=== PATIENT | male | born 1980 | race Caucasian/White ===

== ENCOUNTER 2019-04-24 20:56 | Emergency (ER) | payer OTHER ==
[2019-04-24 21:11] VITALS: TEMP 98.5
[2019-04-24] MEDS ORDERED: VANCOMYCIN IV PER PHARMACY 1 EACH MISC MISCELLANE PRN (21:56)
--- NOTE | 2019-04-24 22:50 | ED ---
Extremity Problem HPI - General Chief complaint: Extremity Problem,Nontraumatic Stated complaint: bilateral edema lower extremities Time Seen by Provider: 04/24/19 21:39 Source: patient Mode of arrival: ambulatory Limitations: no limitations - History of Present Illness Initial comments: This patient is a 39-year-old man who presents to be evaluated for bilateral leg redness and swelling. The patient states that the symptoms have been going on since , when he initially noticed the redness. Then the swelling developed over the course of the next day and there is also some pain associated. The patient states she is currently at [facility] and they sent him here to have evaluation. 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 He has not noted fever or chills. No chest pain, palpitations, dyspnea, diaphoresis. MD Complaint: extremity pain, extremity swelling Onset/Timin -: days(s) Location: bilateral lower extremity Radiation: none Quality: burning Consistency: constant Improves with: nothing Worsens with: nothing Associated Symptoms: denies other symptoms - Related Data Home Medications Medication Instructions Recorded Confirmed Diazepam [Valium] 5 mg PO TID PRN 04/24/19 04/24/19 Gabapentin 800 mg PO TID 04/24/19 04/24/19 Ibuprofen [Motrin] 800 mg PO TID PRN 04/24/19 04/24/19 Methadone [Dolophine] 90 mg PO DAILY 04/24/19 04/24/19 buPROPion XL [Wellbutrin Xl] 150 mg PO DAILY 04/24/19 04/24/19 Previous Rx's Medication Instructions Recorded Cephalexin [Keflex] 500 mg PO Q6HR #28 cap 04/25/19 Sulfamethox-Tmp 800-160Mg [Bactrim 1 each PO Q12HR #14 tab 04/25/19 Ds] Allergies Allergy/AdvReac Type Severity Reaction Status Date / Time No Known Allergies Allergy Verified 04/24/19 22:06 Review of Systems ROS Statement: Those systems with pertinent positive or pertinent negative responses have been documented in the HPI. ROS Other: All systems not noted in ROS Statement are negative. Constitutional: Denies: fever, chills Respiratory: Denies: cough, dyspnea Cardiovascular: Reports: as per HPI, edema. Denies: chest pain, palpitations, syncope Gastrointestinal: Denies: abdominal pain, nausea, vomiting Musculoskeletal: Denies: back pain, joint swelling, arthralgia Skin: Reports: as per HPI, change in color. Denies: rash Neurological: Denies: weakness, numbness, paresthesias Past Medical History Additional Past Medical History / Comment(s): neuropathy History of Any Multi-Drug Resistant Organisms: MRSA Date of last positivie culture/infection: October 16, 2018 MDRO Source:: back Past Surgical History: Appendectomy, Bowel Resection Additional Past Surgical History / Comment(s): spinal sx Past Psychological History: Bipolar Smoking Status: Current every day smoker Past Alcohol Use History: None Reported Past Drug Use History: Cocaine, Heroin General Exam Limitations: no limitations General appearance: alert, in no apparent distress Respiratory exam: Present: normal lung sounds bilaterally. Absent: respiratory distress, wheezes, rales, rhonchi, stridor Cardiovascular Exam: Present: regular rate, normal rhythm, normal heart sounds. Absent: systolic murmur, diastolic murmur, rubs, gallop GI/Abdominal exam: Present: soft. Absent: distended, tenderness, guarding, rebound, rigid, mass Extremities exam: Present: full ROM, normal capillary refill, other (Patient does have some warmth, erythema and mild swelling in the lower extremities consistent with cellulitis). Absent: calf tenderness Back exam: Present: normal inspection Neurological exam: Present: alert. Absent: motor sensory deficit Skin exam: Present: warm, dry, intact, erythema, other (See above. No skin findings suggestive of endocarditis) Course Vital Signs 04/24/19 04/25/19 21:05 02:01 Temperature 98.5 F Pulse Rate 73 60 Respiratory 20 18 Rate Blood Pressure 145/90 125/79 O2 Sat by Pulse 98 99 Oximetry Medical Decision Making - Lab Data Result diagrams: 04/24/19 22:55 04/24/19 22:55 Lab Results 04/24/19 04/24/19 04/24/19 Range/Units 22:55 22:55 22:55 WBC 9.9 (3.8-10.6) k/uL RBC 4.14 L (4.30-5.90) m/uL Hgb 12.7 L (13.0-17.5) gm/dL Hct 37.4 L (39.0-53.0) % MCV 90.2 (80.0-100.0) fL MCH 30.5 (25.0-35.0) pg MCHC 33.8 (31.0-37.0) g/dL RDW 15.2 (11.5-15.5) % Plt Count 397 (150-450) k/uL Neutrophils % 70 % Lymphocytes % 23 % Monocytes % 4 % Eosinophils % 2 % Basophils % 1 % Neutrophils # 6.9 (1.3-7.7) k/uL Lymphocytes # 2.2 (1.0-4.8) k/uL Monocytes # 0.4 (0-1.0) k/uL Eosinophils # 0.2 (0-0.7) k/uL Basophils # 0.1 (0-0.2) k/uL Sodium 141 (137-145) mmol/L Potassium 4.6 (3.5-5.1) mmol/L Chloride 104 (98-107) mmol/L Carbon Dioxide 25 (22-30) mmol/L Anion Gap 12 mmol/L BUN 16 (9-20) mg/dL Creatinine 0.72 (0.66-1.25) mg/dL Est GFR (CKD-EPI)AfAm >90 (>60 ml/min/1.73 sqM) Est GFR (CKD-EPI)NonAf >90 (>60 ml/min/1.73 sqM) Glucose 88 (74-99) mg/dL Plasma Lactic Acid Jasper 0.7 (0.7-2.0) mmol/L Calcium 9.8 (8.4-10.2) mg/dL Total Bilirubin 0.5 (0.2-1.3) mg/dL AST 38 (17-59) U/L ALT 42 (21-72) U/L Alkaline Phosphatase 99 (38-126) U/L Total Protein 7.8 (6.3-8.2) g/dL Albumin 4.2 (3.5-5.0) g/dL Urine Color Urine Appearance (Clear) Urine pH (5.0-8.0) Ur Specific Hobbs (1.001-1.035) Urine Protein (Negative) Urine Glucose (UA) (Negative) Urine Ketones (Negative) Urine Blood (Negative) Urine Nitrite (Negative) Urine Bilirubin (Negative) Urine Urobilinogen (<2.0) mg/dL Ur Leukocyte Esterase (Negative) 09/07/19 Range/Units 23:30 WBC (3.8-10.6) k/uL RBC (4.30-5.90) m/uL Hgb (13.0-17.5) gm/dL Hct (39.0-53.0) % MCV (80.0-100.0) fL MCH (25.0-35.0) pg MCHC (31.0-37.0) g/dL RDW (11.5-15.5) % Plt Count (150-450) k/uL Neutrophils % % Lymphocytes % % Monocytes % % Eosinophils % % Basophils % % Neutrophils # (1.3-7.7) k/uL Lymphocytes # (1.0-4.8) k/uL Monocytes # (0-1.0) k/uL Eosinophils # (0-0.7) k/uL Basophils # (0-0.2) k/uL Sodium (137-145) mmol/L Potassium (3.5-5.1) mmol/L Chloride (98-107) mmol/L Carbon Dioxide (22-30) mmol/L Anion Gap mmol/L BUN (9-20) mg/dL Creatinine (0.66-1.25) mg/dL Est GFR (CKD-EPI)AfAm (>60 ml/min/1.73 sqM) Est GFR (CKD-EPI)NonAf (>60 ml/min/1.73 sqM) Glucose (74-99) mg/dL Plasma Lactic Acid Jasper (0.7-2.0) mmol/L Calcium (8.4-10.2) mg/dL Total Bilirubin (0.2-1.3) mg/dL AST (17-59) U/L ALT (21-72) U/L Alkaline Phosphatase (38-126) U/L Total Protein (6.3-8.2) g/dL Albumin (3.5-5.0) g/dL Urine Color Light Yellow Urine Appearance Clear (Clear) Urine pH 7.0 (5.0-8.0) Ur Specific Hobbs 1.004 (1.001-1.035) Urine Protein Negative (Negative) Urine Glucose (UA) Negative (Negative) Urine Ketones Negative (Negative) Urine Blood Negative (Negative) Urine Nitrite Negative (Negative) Urine Bilirubin Negative (Negative) Urine Urobilinogen <2.0 (<2.0) mg/dL Ur Leukocyte Esterase Negative (Negative) - EKG Data -: EKG Interpreted by [facility] EKG shows normal: sinus rhythm, intervals (DC interval 164 ms, QTC 462 ms, both normal. QRS duration 122 ms, prolonged consistent with right bundle-branch block), QRS complexes (Right bundle-branch block.), ST-T waves (Normal) Rate: normal (Normal) Disposition Clinical Impression: Cellulitis Disposition: HOME SELF-CARE Condition: Fair Instructions (If sedation given, give patient instructions): Cellulitis (ED) Prescriptions: Sulfamethox-Tmp 800-160Mg [Bactrim Ds] 1 each PO Q12HR #14 tab Cephalexin [Keflex] 500 mg PO Q6HR #28 cap Is patient prescribed a controlled substance at d/c from ED?: No Referrals: Nonstaff,Physician [Primary Care Provider] - 1-2 days
[2019-04-24] MEDS ORDERED: VANCOMYCIN 1,750 MG in SODIUM CHLORIDE 0.9% 500 ML 500 ML IVPB ONE (23:00)
[2019-04-24 23:45] LABS: ALT 42 U/L (21-72); AST 38 U/L (17-59); African American GFR (CKD) >90 (>60 ml/min/1.73 sqM); Albumin 4.2 g/dL (3.5-5.0); Alkaline Phosphatase 99 U/L (38-126); Anion Gap 12 mmol/L; Blood Urea Nitrogen 16 mg/dL (9-20); Calcium 9.8 mg/dL (8.4-10.2); Carbon Dioxide 25 mmol/L (22-30); Chloride 104 mmol/L (98-107); Glucose 88 mg/dL (74-99); Potassium 4.6 mmol/L (3.5-5.1); Sodium 141 mmol/L (137-145); Total Bilirubin 0.5 mg/dL (0.2-1.3); Total Protein 7.8 g/dL (6.3-8.2)
[2019-04-24 23:52] LABS: Basophils # (A) 0.1 k/uL (0-0.2); Basophils % (A) 1 %; Eosinophils # (A) 0.2 k/uL (0-0.7); Eosinophils % (A) 2 %; HCT 37.4 % (39.0-53.0); HGB 12.7 gm/dL (13.0-17.5); Lymphocytes # (A) 2.2 k/uL (1.0-4.8); Lymphocytes % (A) 23 %; MCH 30.5 pg (25.0-35.0); MCHC 33.8 g/dL (31.0-37.0); MCV 90.2 fL (80.0-100.0); Mean Platelet Volume 7.2; Monocytes # (A) 0.4 k/uL (0-1.0); Monocytes % (A) 4 %; Neutrophils # (A) 6.9 k/uL (1.3-7.7); Neutrophils % (A) 70 %; Platelet Count 397 k/uL (150-450); RBC 4.14 m/uL (4.30-5.90); RDW 15.2 % (11.5-15.5); WBC 9.9 k/uL (3.8-10.6)
[2019-04-25 00:10] LABS: Appearance,Urine Clear (Clear); Bilirubin,Urine Negative (Negative); Blood,Urine Negative (Negative); Color,Urine Light Yellow; Glucose,Urine (UA) Negative (Negative); Ketones,Urine Negative (Negative); Leukocyte Esterase,Urine Negative (Negative); Nitrite,Urine Negative (Negative); Protein,Urine Negative (Negative); Specific Gravity,Urine 1.004 (1.001-1.035); Urobilinogen,Urine <2.0 mg/dL (<2.0)
[2019-04-25 02:02] VITALS: BP 125/79; PULSE 60; RESP 18
== END 2019-04-25 03:04 | disposition home or self-care (01) ==
LOC: EC 20:56
DX: L03.116 Cellulitis of left lower limb (principal); L03.115 Cellulitis of right lower limb; G62.9 Polyneuropathy, unspecified; F31.9 Bipolar disorder, unspecified; F17.200 Nicotine dependence, unspecified, uncomplicated; Z79.891 Long term (current) use of opiate analgesic; Z79.899 Other long term (current) drug therapy; Z86.14 Personal history of Methicillin resistant Staphylococcus aureus infection
CPT/HCPCS: 36415; 93005; 80053; 83605; 85025; 81003; 87040; 99284; 96365; 96366 ×3; 96368; J3370; J0696